=== PATIENT | male | born 1970 | race Hispanic/Latino ===

== ENCOUNTER → 2024-11-15 | Outpatient (REF) | payer BC ==
[~2024-11-15] MED LIST: AMLODIPINE BESY10 MG PO; DICLOFENAC POTA50 MG PO; LEVOTHYROXINE50 MCG PO; LISINOPRIL10 MG PO; METHIMAZOLE10 MG PO; METOPROLOL SUCC25 MG PO; PROPRANOLOL HCL20 MG PO; ROPIVACAINE/EPI/CLONIDINE/KET 50 ML SYRINGE INJ ONE; TRAMADOL-ACETAMI1 EA PO
[2024-11-15 10:50] LABS: BASOPHILS % 0.5 % (0.0-1.0); EOSINOPHILS % 3.4 % (0.0-6.0); LYMPHOCYTES % 26.1 % (18.0-39.1); MONOCYTES % 6.1 % (4.4-11.3); NEUTROPHILS % 63.8 % (38.7-80.0); RED CELL DISTRIBUTION WIDTH 13.2 % (11.7-14.4)
== END ==
LOC: RAD 12:00 → EDSTATUS 11-18 10:00
PROVIDERS: ATTEND Specialist
DX: Z01.810 Encounter for preprocedural cardiovascular examination (principal); Z01.812 Encounter for preprocedural laboratory examination; M17.11 Unilateral primary osteoarthritis, right knee; E11.9 Type 2 diabetes mellitus without complications; Z79.84 Long term (current) use of oral hypoglycemic drugs; Z72.0 Tobacco use
CPT/HCPCS: 36415; 85025; 86850; 86900; 93005

== ENCOUNTER → 2024-12-24 | Day surgery (SDC) | payer BC ==
[2024-12-13 13:36] LABS: BASOPHILS % 0.4 % (0.0-1.0); EOSINOPHILS % 3.5 % (0.0-6.0); LYMPHOCYTES % 27.1 % (18.0-39.1); MONOCYTES % 6.8 % (4.4-11.3); NEUTROPHILS % 62.0 % (38.7-80.0); RED CELL DISTRIBUTION WIDTH 13.2 % (11.7-14.4)
[~2024-12-24] MED LIST changes: +ACETAMINOPHEN 1000 MG/100 ML 100 ML IV ONE; +ACETAMINOPHEN 1000 MG/100 ML IV PRN; +ASPIRIN 325 MG TAB PO SCH; +CELECOXIB 100 MG CAP PO SCH; +DIPHENHYDRAMINE HCL INJ 50 MG/ML VIAL IV PRN; +DOCUSATE SODIUM 100 MG CAP PO PRN; +FAMOTIDINE 20 MG/2 ML VIAL IV ONE; +FENTANYL CITRATE/PF 100MCG/2 ML INJ ONE; +HYDROCODONE/APAP 5MG-325MG TAB PO PRN; +HYDROMORPHONE 2MG/ML ONE; +LIDOCAINE HCL 2% LOCAL INJ 5 ML SDV VIAL INJ ONE; +MIDAZOLAM HCL 2 MG/2 ML VIAL ONE; +ONDANSETRON HCL INJ 2MG/ML 2ML 2 MG/ML VIAL IV PRN; +ONDANSETRON HCL INJ 2MG/ML 2ML 2 MG/ML VIAL ONE; +PROPOFOL IV EMULSION 10 MG/ML 20 ML VIAL ONE; +ROPIVACAINE 246.25 MG, EPINEPHRINE HCL 1:1000 1ML 0.5 MG, CLONIDINE HCL 0.08 MG, KETORO... INJ ONE; -ROPIVACAINE/EPI/CLONIDINE/KET 50 ML SYRINGE INJ ONE; +SEVOFLURANE INHAL SOLN 250 ML PEN BTL ONE; +SODIUM CHLORIDE 0.9% 1000ML 1,000 ML IV SCH
[2024-12-24] MEDS: LACTATED RINGER'S 1,000 ML ONE (07:28)
[2024-12-24] MEDS: CEFAZOLIN SODIUM 2 GM ONE (07:28)
[2024-12-24] MEDS: DEXAMETHASONE SOD PHOS 10 MG/1 ML VIAL ONE (07:29)
[2024-12-24] MEDS: CELECOXIB 200 MG CAP ONE (07:29)
[2024-12-24] MEDS: GABAPENTIN 300 MG CAP ONE (07:29)
[2024-12-24 09:25] VITALS: TEMP 97.5
[2024-12-24] MEDS: HYDROCODONE/APAP 7.5MG-325MG 1 EA TAB PO PRN (10:10)
[2024-12-24 11:30] VITALS: BP 150/80; PULSE 74; RESP 16; O2SAT 97
== END | disposition home health service (06) ==
LOC: OR 07:04
PROVIDERS: ATTEND Specialist
DX: M17.11 Unilateral primary osteoarthritis, right knee (principal); I10 Essential (primary) hypertension; E78.5 Hyperlipidemia, unspecified; E11.9 Type 2 diabetes mellitus without complications; E66.812 Obesity, class 2; F17.210 Nicotine dependence, cigarettes, uncomplicated; Z79.84 Long term (current) use of oral hypoglycemic drugs; Z68.34 Body mass index [BMI] 34.0-34.9, adult; Z79.899 Other long term (current) drug therapy; Z01.812 Encounter for preprocedural laboratory examination
CPT/HCPCS: 27447; 36415; 73560; 85025; 86850; 86900; 97110; 97116; 97161; C1713 ×2; C1776 ×3; J0131; J0169; J1100; J1171; J1308; J1885; J2003; J2250; J2405; J2704; J2795; J3010; J7121